=== PATIENT | female | born 1975 | race Two or more races ===

== ENCOUNTER 2016-07-30 06:49 | Day surgery (SDC) | payer BC ==
[~2016-07-30] VITALS: Ht 160 cm; Wt 65.6 kg
[2016-07-30 07:25] VITALS: Ht 160 cm; Wt 65.6 kg
[2016-07-30 07:53] VITALS: BP 131/90; PULSE 85; RESP 18
[2016-07-30] MEDS ORDERED: MIDAZOLAM 1 MG/ML 2 ML INJ ONE ×3 (09:00)
[2016-07-30] MEDS ORDERED: FENTAnyl 50 MCG/ML VIAL ONE (09:00)
[2016-07-30 09:20] VITALS: BP 100/59; PULSE 72; RESP 16
--- NOTE | 2016-07-30 10:39 | GILP ---
DATE OF PROCEDURE: PROCEDURE: Esophagogastroduodenoscopy and with biopsy. INDICATION: The patient is a 41-year-old female undergoing this procedure for epigastric pain for t he last 1 year. The purpose is to evaluate the upper GI tract and find out the cause of her symptom s. INFORMED CONSENT: The risks of the procedure, related and unrelated complications, anesthetic sedat mila risks and alternatives were discussed and informed consent was obtained. DESCRIPTION OF PROCEDURE: The patient was brought to the GI lab, sedated with 5 mg of Versed and 10 0 mg of fentanyl. After optimum sedation, the scope was passed with much ease into the esophagus, a dvanced further down into the stomach. The Z line was at 40 cm. There was erosive esophagitis, LA class I. Stomach mucosa revealed chronic and acute gastritis. There was an antral polyp about 1 cm in diameter. Two bites were obtained and sent for pathologic analysis. Duodenal mucosa revealed 2 acute duodenal ulcers, second part including the ampulla was within normal limits. Retroversion wa s done and gastritis confirmed. Four biopsies were obtained from the stomach for H. pylori infectio n. The scope was straightened out and removed, with good patient tolerance. IMPRESSION: 1. Erosive esophagitis. 2. Z line at 40 cm. 3. Acute and chronic gastritis. 4. A 1-cm antral polyp. 5. Multiple acute duodenal ulcers. 6. Normal second part, with a normal ampulla. PLAN: At this point is to review the histopathology. The patient will be placed on a PPI and is to refrain from aspirin and NSAIDs. She should come back to the office in 2 weeks. Dictated By: MARIA ALEJANDRA BROWN/NTS Conf#: [id number] DID#: [id number] CC: RIOS REAVES MD;*EndCC*
== END 2016-07-30 10:15 | disposition home or self-care (01) ==
LOC: GIL 06:49
PROVIDERS: ATTEND Internal Medicine Gastroenterology
DX: K29.50 Unspecified chronic gastritis without bleeding (principal); K20.8 Other esophagitis; K31.7 Polyp of stomach and duodenum; K26.9 Duodenal ulcer, unspecified as acute or chronic, without hemorrhage or perforation
CPT/HCPCS: 43239; 84703; 88305; 88312; J2250; J3010; Z7610